=== PATIENT | female | born 1950 | race Hispanic/Latino ===

== ENCOUNTER 2017-05-11 23:34 | Emergency (ER) | payer SELFPAY ==
[2017-05-11 23:40] VITALS: BMI 26.9
[2017-05-11 23:43] VITALS: RESP 18
--- NOTE | 2017-05-12 00:05 | ED PDOC ---
Arrival/HPI - General Chief Complaint: Trauma Time Seen by Provider: 05/11/17 23:41 Historian: Patient - History of Present Illness Narrative History of Present Illness (Text): you were treated in the ED today for accidentally being hit in the head by the garage door and falling down and hitting back of head but otherwise without any loss of consciousness/neck pain/nausea/vomiting/headache/dizziness/difficulty breathing/chest pain/abdomen pain/numbness/tingling/loss of limb function/pain with urination. 05/12/17 00:03 Time/Duration: 24 hours Symptom Onset: Gradual Symptom Course: Intermittent Quality: Aching Severity Level: 1 Activities at Onset: Rest Context: Sitting Past Medical History - Provider Review Nursing Documentation Reviewed: Yes - Cardiac Hx Hypertension: Yes - Psychiatric Hx Substance Use: No Family/Social History - Physician Review Nursing Documentation Reviewed: Yes Family/Social History: No Known Family HX Smoking Status: y Hx Alcohol Use: No Hx Substance Use: No Allergies/Home Meds Allergies/Adverse Reactions: Allergies No Known Allergies Allergy (Verified 05/11/17 23:44) Home Medications: Home Meds Medication Instructions Recorded Confirmed Lisinopril/Hydrochlorothiazide 20 - 25 mg PO DAILY 05/12/17 05/12/17 [Lisinopril-Hctz 20-25 mg Tab] Review of Systems - Review of Systems Constitutional: Normal Eyes: Normal ENT: Normal Respiratory: Normal Cardiovascular: Normal Gastrointestinal: Normal Genitourinary Female: Normal Musculoskeletal: Normal Skin: Normal Neurological: Headache Endocrine: Normal Hemo/Lymphatic: Normal Psychiatric: Normal Physical Exam Vital Signs Reviewed: Yes Vital Signs Temp Pulse Resp BP Pulse Ox 05/11/17 23:43 97.9 F 64 18 147/77 99 Temperature: Afebrile Blood Pressure: Hypertensive Pulse: Regular Respiratory Rate: Normal Appearance: Positive for: Well-Appearing, Non-Toxic, Comfortable Pain Distress: None Mental Status: Positive for: Alert and Oriented X 3 - Systems Exam Head: Present: Atraumatic, Normocephalic Pupils: Present: PERRL Extroacular Muscles: Present: EOMI Conjunctiva: Present: Normal Ears: Present: Normal Mouth: Present: Moist Mucous Membranes Pharnyx: Present: Normal Nose (External): Present: Atraumatic Nose (Internal): Present: Normal Inspection Neck: Present: Normal Range of Motion, Other (no c-t-l spinal or paraspinal tenderness) Respiratory/Chest: Present: Clear to Auscultation, Good Air Exchange Cardiovascular: Present: Regular Rate and Rhythm Back: Present: Normal Inspection Upper Extremity: Present: Normal Inspection Lower Extremity: Present: Normal Inspection Neurological: Present: GCS=15, CN II-XII Intact, Speech Normal, Motor Func Grossly Intact Skin: Present: Warm, Normal Color Psychiatric: Present: Alert, Oriented x 3, Normal Insight, Normal Concentration Medical Decision Making ED Course and Treatment: you were treated in the ED today for accidentally being hit in the head by the garage door and falling down and hitting back of head but otherwise without any loss of consciousness/neck pain/nausea/vomiting/headache/dizziness/difficulty breathing/chest pain/abdomen pain/numbness/tingling/loss of limb function/pain with urination. You were otherwise breathing easily, pink moist lips, smiling and talking easily, good strength/sensation, alert/oriented, walking easily, clear lungs, no abdomen tenderness, no spinal tenderness, no fever temp 97.9, stable heart rate 64, stable breathing rate 18, excellent oxygen level 99% room air, elevated blood pressure 147/77 which we recommend repeat in 2-3 days primary care office to determine further treatment, radiology ct head no acute findings, tylenol, observation done in the ED with improvement, counselled to have family/friends monitor you for alerteness/unusual drowsiness/numbness/ tingling/loss of limb function or any medical condition for 24hours and thus discharged home. 1. You requested renewal of your Lisinopril-HCTZ 20-25 daily hypertension medication as outdated. 2. Recommend follow-up primary care 2-3 days to review symptoms, referral to neurology clinic to review your symptoms, referral to neurosurgery/surgery for probably sebaceous cyst in the scalp to ensure no complications/cancer development. 3. If any worsening pain, fever, chills, nausea, vomiting, difficulty breathing, numbness, loss of limb function , pain with urination or any medical condition then return to the ED. 05/12/17 00:07 EXAM: CT Head Without Intravenous Contrast Dictated and Authenticated by: Marquis Hay MD 05/12/2017 1:07 AM IMPRESSION: 1. No intracranial hemorrhage. 2. Incidental/non-acute findings are described above. Soft tissues: Probable sebaceous cysts within scalp 05/12/17 01:30 Reassessment Condition: Improved - RAD Interpretation Radiology Orders: 05/12/17 00:02 HEAD W/O CONTRAST [CT] Stat Die Repair: Radiologist (see mdm for ct head) - Medication Orders Current Medication Orders: Discontinued Medications Acetaminophen (Tylenol 325mg Tab) 975 mg PO STAT STA Stop: 05/12/17 00:08 Last Admin: 05/12/17 00:47 Dose: 325 mg Comments: Pt refused, only wanted [address] perea. [facility] Pain/Vitals Document 05/12/17 00:47 [place] (Rec: 05/12/17 00:48 LA [id number]) Pain Reassessment Is This A Pain ReAssessment? No Sleep Is patient sleeping during reassessment? No Presence of Pain Presence of Pain Yes Pain Scale Used Pain Scale Used Numeric Location Pain Location Body Site Neck Disposition/Present on Arrival - Present on Arrival Any Indicators Present on Arrival: No History of DVT/PE: No History of Uncontrolled Diabetes: No Urinary Catheter: No History of Decub. Ulcer: No History Surgical Site Infection Following: None - Disposition Have Diagnosis and Disposition been Completed?: Yes Diagnosis: Head injury Disposition: HOME/ ROUTINE Disposition Time: 01:34 Patient Plan: Discharge Condition: IMPROVED Discharge Instructions (ExitCare): Concussion in Adults, Head Injury Observation (DC) Additional Instructions: you were treated in the ED today for accidentally being hit in the head by the garage door and falling down and hitting back of head but otherwise without any loss of consciousness/neck pain/nausea/vomiting/headache/dizziness/difficulty breathing/chest pain/abdomen pain/numbness/tingling/loss of limb function/pain with urination. You were otherwise breathing easily, pink moist lips, smiling and talking easily, good strength/sensation, alert/oriented, walking easily, clear lungs, no abdomen tenderness, no spinal tenderness, no fever temp 97.9, stable heart rate 64, stable breathing rate 18, excellent oxygen level 99% room air, elevated blood pressure 147/77 which we recommend repeat in 2-3 days primary care office to determine further treatment, radiology ct head no acute findings, tylenol, observation done in the ED with improvement, counselled to have family/friends monitor you for alerteness/unusual drowsiness/numbness/ tingling/loss of limb function or any medical condition for 24hours and thus discharged home. 1. You requested renewal of your Lisinopril-HCTZ 20-25 daily hypertension medication as outdated. 2. Recommend follow-up primary care 2-3 days to review symptoms, referral to neurology clinic to review your symptoms, referral to neurosurgery/surgery for probably sebaceous cyst in the scalp to ensure no complications/cancer development. 3. If any worsening pain, fever, chills, nausea, vomiting, difficulty breathing, numbness, loss of limb function , pain with urination or any medical condition then return to the ED. Prescriptions: Lisinopril/Hydrochlorothiazide [Lisinopril-Hctz 20-25 mg Tab] 1 each PO DAILY 14 Days #14 tablet Forms: [employer] (Ukrainian)
--- NOTE | 2017-05-12 01:08 | CT ---
EXAM: CT Head Without Intravenous Contrast CLINICAL HISTORY: 66 years old, female; Injury or trauma; Injury Patient got hit in the head with the gararge door. ; Initial encounter; Abrasion; Forehead; Additional info: 66yof, head injury TECHNIQUE: Axial computed tomography images of the head/brain without intravenous contrast. All CT scans at this facility use one or more dose reduction techniques, viz.: automated exposure control; ma/kV adjustment per patient size (including targeted exams where dose is matched to indication; i.e. head); or iterative reconstruction technique. Coronal and sagittal reformatted images were created and reviewed. COMPARISON: No relevant prior studies available. FINDINGS: Brain: Mild atrophy. No intracranial hemorrhage. No mass. No edema. Ventricles: No hydrocephalus. Bones/joints: No acute fracture. Soft tissues: Probable sebaceous cysts within scalp. Sinuses: No acute sinusitis. Mastoid air cells: No mastoid effusion. Orbits: Unremarkable as visualized. IMPRESSION: 1. No intracranial hemorrhage. 2. Incidental/non-acute findings are described above.
[2017-05-12 01:37] VITALS: BP 119/72; PULSE 61; TEMP 98; O2SAT 96
== END 2017-05-12 01:44 | disposition home or self-care (01) ==
LOC: ED 23:34
DX: S09.90XA Unspecified injury of head, initial encounter (principal); W22.8XXA Striking against or struck by other objects, initial encounter; I10 Essential (primary) hypertension

== ENCOUNTER 2017-10-13 17:47 | Emergency (ER) | payer MEDICARE ==
[2017-10-13 17:48] VITALS: BMI 26.9
[2017-10-13] MEDS ORDERED: Oxycodone/Acetaminophen 5/325 mg Tab PO STA (18:39)
--- NOTE | 2017-10-13 18:44 | ED PDOC ---
Arrival/HPI - General Chief Complaint: ENT Problem Time Seen by Provider: 10/13/17 18:38 Historian: Patient - History of Present Illness Narrative History of Present Illness (Text): 10/13/17 18:40 67 y/o female, nkda, c/o lt. sided ear pain x 2 days and LLE pain x 2 weeks with no fall or trauma. Lt. ear is aching pain on and off, associated with decrease hearing, no numbness or tingling, no fever or chills, no night sweat, no palpitation, no numbness or tingling. Pt. stated that she has lt. gluteal pain radiating to the LLE, no fall or trauma, no urinary or bowel incontinence/ retention, no other medical or psychological complaints. Past Medical History - Provider Review Nursing Documentation Reviewed: Yes - Cardiac Hx Cardiac Disorders: Yes Hx Hypertension: Yes - Pulmonary Hx Respiratory Disorders: Yes Hx Bronchitis: Yes - Neurological Hx Neurological Disorder: No - HEENT Hx HEENT Disorder: No - Renal Hx Renal Disorder: No - Endocrine/Metabolic Hx Endocrine Disorders: No - Hematological/Oncological Hx Blood Disorders: No - Integumentary Hx Dermatological Disorder: No - Musculoskeletal/Rheumatological Hx Musculoskeletal Disorders: No - Gastrointestinal Hx Gastrointestinal Disorders: Yes Hx Gastroesophageal Reflux: Yes - Genitourinary/Gynecological Hx Genitourinary Disorders: No - Psychiatric Hx Psychophysiologic Disorder: No Hx Substance Use: No - Surgical History Other/Comment: R HAND Family/Social History - Physician Review Nursing Documentation Reviewed: Yes Family/Social History: Unknown Family HX Smoking Status: Heavy Smoker > 10 Cigarettes Daily Hx Alcohol Use: No Hx Substance Use: No Allergies/Home Meds Allergies/Adverse Reactions: Allergies No Known Allergies Allergy (Verified 10/13/17 17:59) Home Medications: Home Meds Medication Instructions Recorded Confirmed Omeprazole [Omeprazole] 20 mg PO DAILY 07/01/17 10/13/17 Review of Systems - Review of Systems Constitutional: absent: Fatigue, Fevers Eyes: absent: Vision Changes ENT: Other (+lt. ear pain). absent: Sore Throat Respiratory: absent: SOB, Cough, Sputum Cardiovascular: absent: Chest Pain Gastrointestinal: absent: Abdominal Pain, Nausea, Vomiting Genitourinary Female: absent: Dysuria, Frequency Musculoskeletal: Myalgias. absent: Arthralgias, Back Pain, Neck Pain, Joint Swelling Skin: absent: Rash, Pruritis Neurological: absent: Headache, Dizziness Psychiatric: absent: Anxiety, Depression, Suicidal Ideation Physical Exam Vital Signs Reviewed: Yes Vital Signs Temp Pulse Resp BP Pulse Ox 10/13/17 20:11 98.6 F 63 18 139/72 100 10/13/17 19:00 98.6 F 65 18 140/68 100 10/13/17 18:00 98.7 F 65 16 146/77 97 Temperature: Afebrile Blood Pressure: Normal Pulse: Regular Respiratory Rate: Normal Appearance: Positive for: Well-Appearing, Non-Toxic, Comfortable Pain Distress: Moderate Mental Status: Positive for: Alert and Oriented X 3 - Systems Exam Head: Present: Atraumatic, Normocephalic Pupils: Present: PERRL Extroacular Muscles: Present: EOMI Conjunctiva: Present: Normal Ears: Present: Other (Ears: lt. TM unable to visualized and visible ceruman impaction, rt. TM rebecca color and intact, bilateral auditory canals non- erythematous, no mastoid tenderness. ) Mouth: Present: Moist Mucous Membranes Neck: Present: Normal Range of Motion Respiratory/Chest: Present: Clear to Auscultation, Good Air Exchange. No: Respiratory Distress, Accessory Muscle Use Cardiovascular: Present: Regular Rate and Rhythm, Normal S1, S2. No: Murmurs Abdomen: No: Tenderness, Distention, Peritoneal Signs Back: Present: Normal Inspection. No: CVA Tenderness, Midline Tenderness, Paraspinal Tenderness, Pain with Leg Raise Upper Extremity: Present: Normal Inspection, Neurovascularly Intact. No: Cyanosis, Edema, Deformity Lower Extremity: Present: Normal Inspection, Normal ROM, Neurovascularly Intact , Capillary Refill < 2 s, Other (Bilateral lower extremities: no tenderness or swellin, no deformities, FROM without limitation, sensation intact, motor 5/5, no skin tightening). No: Edema, Deformity Neurological: Present: GCS=15, CN II-XII Intact, Speech Normal, Motor Func Grossly Intact, Gait Normal, Memory Normal Skin: Present: Warm, Dry, Normal Color. No: Rashes Psychiatric: Present: Alert, Oriented x 3, Normal Insight, Normal Concentration Medical Decision Making ED Course and Treatment: 10/13/17 18:47 Differential: ceruman impaction vs. Otitis media vs. DVT vs. Sciatica vs. Fracture -Percocet -Irrigate the left ear and reassess -Bilateral LE Venuous doppler -LS spine xray 10/13/17 20:00 -Lt. ear irrigated with normal saline 200cc with saline, large chunk of the ear wax remove and patient has no pain with increase hearing. Ears re-examined which show the following: Ears: Bilateral TMs rebecca color and intact, bilateral auditory canals non-erythematous with no visible remaining ceruman impaction, no mastoid tenderness, hearing grossly intact and equal. -Bilateral LE Venuous doppler: as per preliminary report, no acute DVT -LS spine xray: No acute fracture or spondylolysis. Multilevel degenerative disc disease, worse at L4-5. -Pt. feels much better, asymptomatic, feeling much better, will discharge home. -Discharge home with tylenol, flexeril, bed rest, follow up with your own pmd and orthopedic/ENT within 2 days, return to the ER for any new or worsening signs or symptoms. - Lab Interpretations I have reviewed the lab results: Yes - RAD Interpretation Radiology Orders: 10/13/17 18:39 LS SPINE WITH OBL > 18 YRS OLD [RAD] Stat DUPLEX LOWER EXTRM VEIN BILAT [US] Stat LS spine xray: HISTORY: chronic back pain COMPARISON: No prior. FINDINGS: BONES: There is a 8 mm degenerative anterior listhesis of L4 on L5 there is normal lumbar lordosis. There is diffuse bone demineralization. There is no acute fracture or spondylolysis. DISC SPACES: There is advanced multilevel degenerative disc disease with anterior spurring, reduced disc heights and multilevel facet arthropathy, worse at L4-5. OTHER FINDINGS: There are no pathologic soft tissue calcifications. Both sacroiliac joints are normal. IMPRESSION: No acute fracture or spondylolysis. Multilevel degenerative disc disease, worse at L4-5. Bilateral LE Venuous Doppler: as per preliminary report, no acute DVT Log Sorting Supervisor: Radiologist - Medication Orders Current Medication Orders: Discontinued Medications Oxycodone/Acetaminophen (Percocet 5/325 Mg Tab) 1 tab PO STAT STA Stop: 10/13/17 18:40 Last Admin: 10/13/17 19:03 Dose: 1 tab MAR Pain Assessment Document 10/13/17 19:03 [place] (Rec: 10/13/17 19:03 [place] [id number] Pain Reassessment Is this a pain reassessment? No Sleep Is patient sleeping during reassessment? No Presence of Pain Presence of Pain Yes Pain Scale Used Pain Scale Used Numeric Location Left, Right or Bilateral Left Pain Location Body Site Leg Description Description Constant Intensity of Pain at present 7 Pain Behavior Guarding - PA / LEASE OPERATOR / Resident Statement / has reviewed & agrees with the documentation as recorded. Disposition/Present on Arrival - Present on Arrival Any Indicators Present on Arrival: No History of DVT/PE: No History of Uncontrolled Diabetes: No Urinary Catheter: No History of Decub. Ulcer: No History Surgical Site Infection Following: None - Disposition Have Diagnosis and Disposition been Completed?: Yes Diagnosis: Sciatica, Impacted cerumen of left ear, Degenerative arthritis of spine Disposition: HOME/ ROUTINE Disposition Time: 18:48 Patient Plan: Discharge Condition: IMPROVED Prescriptions: Acetaminophen [Pain Relief] 500 mg PO QID PRN #30 tablet PRN Reason: Other Cyclobenzaprine HCl 10 mg PO BID PRN #20 tablet PRN Reason: Other Referrals: Deshawn De DO [Staff Provider] - Follow up with primary Angel Watson DO [Staff Provider] - Follow up with primary [facility] [place] - Follow up with primary Forms: [employer] (Kazakh), WORK NOTE
[2017-10-13 20:24] VITALS: RESP 18; TEMP 98.6; O2SAT 100
[2017-10-13 20:25] VITALS: BP 139/72; PULSE 63
--- NOTE | 2017-10-14 08:49 | RAD ---
Date of service: 10/13/2017 PROCEDURE: Radiographs of the Lumbar Spine. HISTORY: chronic back pain COMPARISON: No prior. FINDINGS: BONES: There is a 8 mm degenerative anterior listhesis of L4 on L5 there is normal lumbar lordosis. There is diffuse bone demineralization. There is no acute fracture or spondylolysis. DISC SPACES: There is advanced multilevel degenerative disc disease with anterior spurring, reduced disc heights and multilevel facet arthropathy, worse at L4-5. OTHER FINDINGS: There are no pathologic soft tissue calcifications. Both sacroiliac joints are normal. IMPRESSION: No acute fracture or spondylolysis. Multilevel degenerative disc disease, worse at L4-5.
--- NOTE | 2017-10-14 09:53 | US ---
HISTORY: Leg pain and swelling. Evaluate for DVT PHYSICIAN(S): Frederick Chavarria MD. TECHNIQUE: Duplex sonography and color-flow Doppler with graded compression were used to evaluate the deep venous systems of both lower extremities. FINDINGS: The visualized deep venous systems of both lower extremities are sonographically normal and compressible. Normal wave forms and augmentation are seen. There is no sonographic evidence for deep venous thrombosis in the visualized segments of both lower extremities. IMPRESSION: No sonographic evidence for deep venous thrombosis in the visualized segments of both lower extremities.
== END 2017-10-13 20:11 | disposition home or self-care (01) ==
LOC: ED 17:47
DX: M54.30 Sciatica, unspecified side (principal); M47.9 Spondylosis, unspecified; H61.22 Impacted cerumen, left ear; F17.210 Nicotine dependence, cigarettes, uncomplicated; I10 Essential (primary) hypertension

== ENCOUNTER 2017-10-29 13:39 | Emergency (ER) | payer MEDICARE ==
[2017-10-29 13:46] VITALS: BMI 25.0
[2017-10-29 13:50] VITALS: TEMP 98.7
--- NOTE | 2017-10-29 15:47 | CT ---
Date of service: 10/29/2017 PROCEDURE: CT Lumbar Spine without contrast HISTORY: r/o fx - pt. has left leg pain COMPARISON: None available. TECHNIQUE: Axial computed tomography images were obtained of the lumbar spine without the use of intravenous contrast. Coronal and sagittal reformatted images were created and reviewed. Radiation dose: Total exam DLP = 565.34 mGy-cm. This CT exam was performed using one or more of the following dose reduction techniques: Automated exposure control, adjustment of the mA and/or kV according to patient size, and/or use of iterative reconstruction technique. FINDINGS: VERTEBRAE: There is degenerative 5 mm anterior listhesis of L4 on L5. There is diffuse bone demineralization. There is no acute fracture or spondylolysis. There is normal lumbar lordosis. DISCS/SPINAL CANAL/NEURAL FORAMINA: Evaluation of the discs, conus medullaris and nerve roots of cauda equina is limited on noncontrast CT examination. Allowing for this, L1-2: No large disc herniation, neural foraminal or spinal canal stenosis. L2-3: Diffuse posterior disc bulge without central spinal canal stenosis. Mild bilateral facet arthropathy contribute to mild neural foraminal narrowing. L3-4: Diffuse posterior disc bulge without central spinal canal stenosis. Moderate bilateral facet arthropathy contribute to moderate neural foraminal narrowing. L4-5: Disc desiccation with vacuum phenomenon. There is a large right posterolateral disc extrusion with vacuum disc resulting in mild mass effect on the right ventral thecal sac. Moderate bilateral facet arthropathy contributes to moderate right and mild left neural foraminal narrowing. L5-S1: Diffuse posterior disc bulge with superimposed left foraminal and far lateral disc protrusions which impinge on the exiting left L5 nerve root. No central spinal canal stenosis. Mild bilateral facet arthropathy contribute to severe left and mild right neural foraminal narrowing. PARASPINAL SOFT TISSUES: Unremarkable. OTHER FINDINGS: None. IMPRESSION: 1. No acute fracture or spondylolysis. 2. At L5-S1, diffuse posterior disc bulge with superimposed left foraminal and far lateral disc protrusions likely impinge on the exiting left L5 nerve root. No central spinal canal stenosis. Mild bilateral facet arthropathy contribute to mild right and severe left neural foraminal narrowing. 3. At L4-5 large right posterolateral disc extrusion with vacuum disc result in mild mass effect on the right ventral thecal sac. Moderate bilateral facet arthropathy contribute to moderate right and mild left neural foraminal narrowing, also noted is degenerative grade 1 anterior listhesis of L4 on L5.
[2017-10-29 15:53] VITALS: BP 130/65; RESP 17; O2SAT 98
[2017-10-29 16:08] VITALS: PULSE 64
--- NOTE | 2017-10-29 16:24 | ED PDOC ---
Arrival/HPI - General Chief Complaint: Lower Extremity Problem/Injury Time Seen by Provider: 10/29/17 14:07 Historian: Patient - History of Present Illness Narrative History of Present Illness (Text): 10/29/17 14:13 67 year old female, with past medical history of hypertension and bronchitis, presents to the Emergency Department complaining of persistent bilateral leg discomfort since 3 weeks. As per patient, pain radiates to the back of her legs approximately to her knee prompting her to present to the Emergency Department for evaluation. Patient informs associated mild back pain but denies any trauma or fall. Patient was seen in the Emergency Department earlier in the month for similar symptoms and did not follow-up with a specialist as instructed. Patient denies any fever, chills, nausea, vomiting, diarrhea, abdominal pain, chest pain , shortness of breath, cough, headache, dizziness, neck pain, saddle anesthesia , or any other complaints. Time/Duration: > week (3 weeks) Symptom Onset: Gradual Symptom Course: Unchanged Quality: Aching Activities at Onset: Light Context: Home Past Medical History - Provider Review Nursing Documentation Reviewed: Yes - Infectious Disease Hx of Infectious Diseases: None - Cardiac Hx Cardiac Disorders: Yes Hx Hypertension: Yes - Pulmonary Hx Respiratory Disorders: Yes Hx Bronchitis: Yes - Neurological Hx Neurological Disorder: No - HEENT Hx HEENT Disorder: No - Renal Hx Renal Disorder: No - Endocrine/Metabolic Hx Endocrine Disorders: No - Hematological/Oncological Hx Blood Disorders: No - Integumentary Hx Dermatological Disorder: No - Musculoskeletal/Rheumatological Hx Musculoskeletal Disorders: No - Gastrointestinal Hx Gastrointestinal Disorders: Yes Hx Gastroesophageal Reflux: Yes - Genitourinary/Gynecological Hx Genitourinary Disorders: No - Psychiatric Hx Psychophysiologic Disorder: No Hx Substance Use: No - Surgical History Other/Comment: R HAND. colonscopy - Anesthesia Hx Anesthesia: Yes Family/Social History - Physician Review Nursing Documentation Reviewed: Yes Family/Social History: No Known Family HX Smoking Status: Heavy Smoker > 10 Cigarettes Daily Hx Alcohol Use: No Hx Substance Use: No Allergies/Home Meds Allergies/Adverse Reactions: Allergies No Known Allergies Allergy (Verified 10/13/17 17:59) Review of Systems - Physician Review All systems were reviewed & negative as marked: Yes - Review of Systems Constitutional: absent: Fevers Respiratory: absent: SOB, Cough Cardiovascular: absent: Chest Pain, Palpitations Gastrointestinal: absent: Abdominal Pain, Diarrhea, Nausea, Vomiting Musculoskeletal: Back Pain, Other (bilateral leg discomfort). absent: Neck Pain Neurological: absent: Headache, Dizziness Physical Exam Vital Signs Reviewed: Yes Vital Signs Temp Pulse Resp BP Pulse Ox 10/29/17 16:07 64 98 10/29/17 15:52 65 17 130/65 98 10/29/17 13:49 98.7 F 70 18 127/57 L 97 Temperature: Afebrile Blood Pressure: Normal Pulse: Regular Respiratory Rate: Normal Appearance: Positive for: Well-Appearing, Non-Toxic, Comfortable Pain Distress: None Mental Status: Positive for: Alert and Oriented X 3 - Systems Exam Head: Present: Atraumatic, Normocephalic Pupils: Present: PERRL Extroacular Muscles: Present: EOMI Conjunctiva: Present: Normal Neck: Present: Normal Range of Motion Respiratory/Chest: Present: Clear to Auscultation, Good Air Exchange. No: Respiratory Distress, Accessory Muscle Use Cardiovascular: Present: Regular Rate and Rhythm, Normal S1, S2. No: Murmurs Abdomen: No: Tenderness, Distention, Peritoneal Signs Back: Present: Normal Inspection. No: CVA Tenderness, Midline Tenderness, Paraspinal Tenderness Upper Extremity: Present: Normal Inspection. No: Cyanosis, Edema Lower Extremity: Present: NORMAL PULSES, Normal ROM, Tenderness (diffused leg tenderness), Neurovascularly Intact, Capillary Refill < 2 s. No: Edema, CALF TENDERNESS, Deformity Neurological: Present: GCS=15, CN II-XII Intact, Speech Normal Skin: Present: Warm, Dry, Normal Color. No: Rashes Psychiatric: Present: Alert, Oriented x 3, Normal Insight, Normal Concentration Medical Decision Making ED Course and Treatment: 10/29/17 14:13 Impression: 67 year old female presents to the Emergency Department for bilateral leg pain. Differential Diagnosis included but are not limited to: sciatica Plan: -- CT of Lumbar spine -- Reassess and disposition Prior Visits: Notes and results from previous visits were reviewed. Progress Notes: 10/29/17 15:00 CT of Lumbar spine reviewed by radiologist, shows: 1. No acute fracture or spondylolysis. 2. At L5-S1, diffuse posterior disc bulge with superimposed left foraminal and far lateral disc protrusions likely impinge on the exiting left L5 nerve root. No central spinal canal stenosis. Mild bilateral facet arthropathy contribute to mild right and severe left neural foraminal narrowing. 3. At L4-5 large right posterolateral disc extrusion with vacuum disc result in mild mass effect on the right ventral thecal sac. Moderate bilateral facet arthropathy contribute to moderate right and mild left neural foraminal narrowing, also noted is degenerative grade 1 anterior listhesis of L4 on L5. 10/29/17 15:13 CT result of Lumbar spine was made aware to patient and patient was instructed to follow-up with a specialist for further evaluation and treatment. Patient shows understanding and agrees with plan. - RAD Interpretation Radiology Orders: 10/29/17 14:13 LUMBAR SPINE W/O CONTRAST [CT] Stat Delicatessen Clerk: Radiologist - Scribe Statement The provider has reviewed the documentation as recorded by the Scribe Candy Whitman. All medical record entries made by the Scribe were at my direction and personally dictated by me. I have reviewed the chart and agree that the record accurately reflects my personal performance of the history, physical exam, medical decision making, and the department course for this patient. I have also personally directed, reviewed, and agree with the discharge instructions and disposition. Disposition/Present on Arrival - Present on Arrival Any Indicators Present on Arrival: No History of DVT/PE: No History of Uncontrolled Diabetes: No Urinary Catheter: No History of Decub. Ulcer: No History Surgical Site Infection Following: None - Disposition Have Diagnosis and Disposition been Completed?: Yes Diagnosis: Sciatica Disposition: HOME/ ROUTINE Disposition Time: 15:45 Condition: GOOD Discharge Instructions (ExitCare): Sciatica (DC), Sciatica Exercises Additional Instructions: LIZBET ZAPATA, thank you for letting us take care of you today. Your provider was Familia Hassan DO and you were treated for ENTIRE LEG IN PAIN. The emergency medical care you received today was directed at your acute symptoms. If you were prescribed any medication, please fill it and take as directed. It may take several days for your symptoms to resolve. Return to the Emergency Department if your symptoms worsen, do not improve, or if you have any other problems. Please contact your doctor or call one of the physicians/clinics you have been referred to that are listed on the Patient Visit Information form that is included in your discharge packet. Bring any paperwork you were given at discharge with you along with any medications you are taking to your follow up visit. Our treatment cannot replace ongoing medical care by a primary care provider outside of the emergency department. Thank you for allowing the [facility] team to be part of your care today. You have a disc bulging in your lower back. Follow up with the orthopedic doctor this week for further management and re- evaluation. Prescriptions: traMADol [Ultram] 50 mg PO Q8 PRN #15 tab PRN Reason: Pain, Severe (8-10) Referrals: Ken Pena MD [Staff Provider] - Follow up with primary Forms: [employer] (Togolese)
== END 2017-10-29 16:07 | disposition home or self-care (01) ==
LOC: ED 13:39
DX: M54.30 Sciatica, unspecified side (principal)

== ENCOUNTER 2018-05-26 23:58 | Emergency (ER) | payer MEDICARE ==
[2018-05-26 23:59] VITALS: BMI 25.0
[2018-05-27 00:07] VITALS: RESP 16; TEMP 97.5
--- NOTE | 2018-05-27 00:31 | ED PDOC ---
Arrival/HPI - General Chief Complaint: High Blood Pressure Historian: Patient - History of Present Illness Narrative History of Present Illness (Text): 05/27/18 00:30 67 year old female, with a past medical history of hypertension and bronchitis, who presents to the Emergency department for evaluation of an elevated blood pressure. Patient endorses compliance with her medications. She denies any chest pain, shortness of breath, fever, cough, chills, headache, dizziness, nausea, vomiting, or any other complaints. Time/Duration: 24 hours Symptom Onset: Gradual Symptom Course: Unchanged Activities at Onset: Light Context: Home Past Medical History - Provider Review Nursing Documentation Reviewed: Yes - Infectious Disease Hx of Infectious Diseases: None - Cardiac Hx Cardiac Disorders: Yes Hx Hypertension: Yes - Pulmonary Hx Respiratory Disorders: Yes Hx Bronchitis: Yes - Neurological Hx Neurological Disorder: No - HEENT Hx HEENT Disorder: No - Renal Hx Renal Disorder: No - Endocrine/Metabolic Hx Endocrine Disorders: No - Hematological/Oncological Hx Blood Disorders: No - Integumentary Hx Dermatological Disorder: No - Musculoskeletal/Rheumatological Hx Musculoskeletal Disorders: No - Gastrointestinal Hx Gastrointestinal Disorders: Yes Hx Gastroesophageal Reflux: Yes - Genitourinary/Gynecological Hx Genitourinary Disorders: No - Psychiatric Hx Psychophysiologic Disorder: No Hx Substance Use: No - Surgical History Other/Comment: R HAND. colonscopy - Anesthesia Hx Anesthesia: Yes Family/Social History - Physician Review Nursing Documentation Reviewed: Yes Family/Social History: Unknown Family HX Smoking Status: Heavy Smoker > 10 Cigarettes Daily Hx Alcohol Use: No Hx Substance Use: No Allergies/Home Meds Allergies/Adverse Reactions: Allergies No Known Allergies Allergy (Verified 05/27/18 00:05) Home Medications: Home Meds Medication Instructions Recorded Confirmed Amitriptyline HCl 25 mg PO DAILY 05/27/18 05/27/18 Amitriptyline [Elavil] 25 mg PO HS 05/27/18 05/27/18 Cholecalciferol (Vitamin D3) 50,000 unit PO MON 05/27/18 05/27/18 [Vitamin D3] Duloxetine HCl 30 mg PO DAILY 05/27/18 05/27/18 Gabapentin [Neurontin] 300 mg PO TID 05/27/18 05/27/18 Lisinopril [Zestril] 20 mg PO DAILY 05/27/18 05/27/18 Meloxicam [Mobic] 15 mg PO DAILY 05/27/18 05/27/18 Omega3/Dha/Epa/Fish Oil/Vit D3 1 cap PO BID 05/27/18 05/27/18 [Fish Oil-Vit D3 Softgel] Rosuvastatin Calcium [Crestor] 20 mg PO DAILY 05/27/18 05/27/18 Review of Systems - Physician Review All systems were reviewed & negative as marked: Yes - Review of Systems Constitutional: absent: Fevers Respiratory: absent: SOB, Cough Cardiovascular: absent: Chest Pain Gastrointestinal: absent: Abdominal Pain Musculoskeletal: absent: Back Pain, Neck Pain Neurological: absent: Headache, Dizziness Physical Exam Vital Signs Reviewed: Yes Vital Signs Temp Pulse Resp BP Pulse Ox 05/27/18 00:07 147/63 05/27/18 00:05 97.5 F L 61 16 97 Temperature: Afebrile Blood Pressure: Normal Pulse: Regular Respiratory Rate: Normal Appearance: Positive for: Well-Appearing, Non-Toxic, Comfortable Pain Distress: None Mental Status: Positive for: Alert and Oriented X 3 - Systems Exam Head: Present: Atraumatic, Normocephalic Pupils: Present: PERRL Extroacular Muscles: Present: EOMI Conjunctiva: Present: Normal Mouth: Present: Moist Mucous Membranes Neck: Present: Normal Range of Motion Respiratory/Chest: Present: Clear to Auscultation, Good Air Exchange. No: Respiratory Distress, Accessory Muscle Use Cardiovascular: Present: Regular Rate and Rhythm, Normal S1, S2. No: Murmurs Abdomen: No: Tenderness, Distention, Peritoneal Signs Back: Present: Normal Inspection Upper Extremity: Present: Normal Inspection. No: Cyanosis, Edema Lower Extremity: Present: Normal Inspection. No: Edema Neurological: Present: GCS=15, Speech Normal Skin: Present: Warm, Dry, Normal Color. No: Rashes Psychiatric: Present: Alert, Oriented x 3, Normal Insight, Normal Concentration Medical Decision Making ED Course and Treatment: 05/27/18 00:30 Impression: 67 year old female presents to the Emergency department for evaluation of an elevated blood pressure. Differential Diagnosis included but are not limited to: Plan: -- EKG -- Tylenol -- Reassess and disposition Prior Visits: Notes and results from previous visits were reviewed. Progress Notes: EKG reviewed, shows: sinus bradycardia at 55, normal axis and intervals. - Scribe Statement The provider has reviewed the documentation as recorded by the Aism New All medical record entries made by the Asim were at my direction and personally dictated by me. I have reviewed the chart and agree that the record accurately reflects my personal performance of the history, physical exam, medical decision making, and the department course for this patient. I have also personally directed, reviewed, and agree with the discharge instructions and disposition. Disposition/Present on Arrival - Present on Arrival Any Indicators Present on Arrival: No History of DVT/PE: No History of Uncontrolled Diabetes: No Urinary Catheter: No History of Decub. Ulcer: No History Surgical Site Infection Following: None - Disposition Have Diagnosis and Disposition been Completed?: Yes Diagnosis: Hypertension Disposition: HOME/ ROUTINE Disposition Time: 01:30 Condition: GOOD Discharge Instructions (ExitCare): High Blood Pressure (DC), Low Salt Diet Additional Instructions: LIZBET ZAPATA, thank you for letting us take care of you today. Your provider was Familia Hassan DO and you were treated for HYPERTENSION. The emergency medical care you received today was directed at your acute symptoms. If you were prescribed any medication, please fill it and take as directed. It may take several days for your symptoms to resolve. Return to the Emergency Department if your symptoms worsen, do not improve, or if you have any other problems. Please contact your doctor or call one of the physicians/clinics you have been referred to that are listed on the Patient Visit Information form that is included in your discharge packet. Bring any paperwork you were given at discharge with you along with any medications you are taking to your follow up visit. Our treatment cannot replace ongoing medical care by a primary care provider outside of the emergency department. Thank you for allowing the [facility] team to be part of your care today. Continue taking your medication as prescribed and follow up with your primary care doctor this week for re-evaluation and further management. Referrals: [facility], [Non-Staff] - Follow up with primary Forms: [email or web address] (Serbian)
[2018-05-27 01:03] LABS: BASO # 0.02 K/mm3 (0.0-2.0); BASO % 0.3 % (0.0-3.0); EOS # 0.1 (0.0-0.7); EOS % 1.8 % (1.5-5.0); HEMOGLOBIN 14.1 g/dL (12.0-16.0); LYMPH # 2.8 (1.2-3.4); LYMPH % 38.8 % (22.0-35.0); MEAN CELL VOLUME 93.8 fl (80.0-105.0); MEAN CORPUSCULAR HEMOGLOBIN 31.1 pg (25.0-35.0); MEAN CORPUSCULAR HGB CONC 33.2 g/dl (31.0-37.0); MEAN PLATELET VOLUME 10.2 fl (7.0-11.0); MONO # 0.4 (0.1-0.6); MONO % 5.7 % (1.0-6.0); RBC 4.53 10^6/uL (3.5-6.1); RED CELL DISTRIBUTION WIDTH 13.1 % (11.5-14.5); WHITE BLOOD COUNT 7.1 10^3/uL (4.5-11.0)
[2018-05-27 01:13] LABS: ALB/GLOB RATIO 1.4 (1.1-1.8); ALBUMIN 4.4 g/dL (3.0-4.8); ALT/SGPT 16 U/L (7-56); AST/SGOT 23 U/L (14-36); BLOOD UREA NITROGEN 15 mg/dL (7-21); CALCIUM 9.9 mg/dL (8.4-10.5); GFR NON-AFRICAN AMERICAN > 60
[2018-05-27 01:24] LABS: TROPONIN I < 0.01 ng/mL
[2018-05-27 02:03] VITALS: BP 122/59; PULSE 52; O2SAT 96
--- NOTE | 2018-05-27 21:08 | CARD ---
APPROVED REPORT Date of service: 05/27/2018 EKG Measurement Heart [id number] <Conclusion> Sinus bradycardia Inferior infarct, age undetermined Abnormal ECG
== END 2018-05-27 02:07 | disposition home or self-care (01) ==
LOC: ED 23:58
DX: I10 Essential (primary) hypertension (principal); K21.9 Gastro-esophageal reflux disease without esophagitis; F17.210 Nicotine dependence, cigarettes, uncomplicated